=== PATIENT | male | born 1955 | race Caucasian/White ===

== ENCOUNTER 2024-06-03 11:39 | Emergency (ER) | payer OTHER, SELFPAY ==
[2024-06-03 11:53] VITALS: BP 134/85
--- NOTE | 2024-06-03 14:04 | ED.GENMED ---
History of Present Illness
General
Chief Complaint: Skin Problem
Time Seen by Provider: 06/03/24 13:09
History of Present Illness
History of Present Illness:
68-year-old male presents to the emergency department for evaluation of an abscess to the right scapula that has been ongoing for the past 2 to 3 days. Saw his primary care physician who started him on cephalexin but recommended ED evaluation. No
fevers or chills. No past history of similar. Denies any chest pain or difficulty breathing. No upper extremity paresthesias
Past History
Past History
ED Past Medical History: Other (Diverticulitis)
ED Past Surgical History: None
Social History
Tobacco: Non-smoker
Alcohol: None
Review of Systems
Review of Systems
Allergies reviewed?: Yes
All Other Systems: ROS reviewed and negative except as documented in HPI and ROS
Phy Exam
Physical Exam
Physical Exam:
GEN: Well appearing, NAD, WDWN
HEENT: Oral mucosa moist, no scleral icterus
Cardiac: Regular rate
Lung: No respiratory distress, no tachypnea
MSK: No gross deformity or injuries
Skin: Good color, no pallor or jaundice, no rashes. 2 cm x 3 cm fluctuant mass with active purulent discharge to the right scapula, mild surrounding erythema
Neuro: AO x3, moves all extremities freely
Psych: Calm, cooperative
Course
Vital Signs
Initial and Last Documented VS:
Initial Vital Signs
Temp Pulse Resp BP Pulse Ox
98.0 F 72 20 134/85 98
06/03/24 11:53 06/03/24 11:53 06/03/24 11:53 06/03/24 11:53 06/03/24 11:53
Last Documented Vital Signs
Temp Pulse Resp BP Pulse Ox
98.0 F 72 20 134/85 98
06/03/24 11:53 06/03/24 11:53 06/03/24 11:53 06/03/24 11:53 06/03/24 11:53
Procedures
Incision/Drainage/Joint Aspiration
Right Scapula:
Anethesia: 1% Lidocaine with Epi
Preparation: cleaned with alcohol wipe
Type of procedure: incise and drain
Nature of site: abscess
Description of abscess: greater than 3cm
Loculations broken up: Yes
How much fluid was obtained?: large amount
Fluid description: purulent
Treatment: left open for drainage
MDM/Problems Addressed
MDM/Problems Addressed:
Abscess drained at the bedside, patient was started on cephalexin per primary care physician orders. Wound care follow-up discussed
*Critical Care Note
Total Time (30-74mins, 75-104mins- exclusive of procedures): Not Applicable
ED Attending Note
-
Portions of this chart may have been created with voice recognition software.� Occasional wrong word or��sound alike� substitutions may have occurred due to the inherent limitations of voice recognition software.
Discharge Plan
Departure
Patient Disposition: Home (Routine Discharge)
Date of Disposition: 06/03/24
Time of Disposition: 14:06
Patient with high blood pressure during this ER visit?: No
Discharge Problem:
Abscess of back
Instructions: Skin Abscess
Prescriptions:
No Action
hydrocodone-acetaminophen 5-325 mg tablet
1 tab PO BID PRN (Reason: pain) Qty: 14 0RF
metronidazole 500 mg Tablet
500 mg PO TID Qty: 21 0RF
tamsulosin [Flomax] 0.4 mg Capsule
0.4 mg PO DAILY Qty: 14 0RF
diclofenac potassium 50 mg tablet
50 mg PO BID Qty: 20 0RF
ondansetron 4 mg Tablet,Disintegrating
4 mg PO BIDPRN PRN (Reason: nausea/vomiting) Qty: 10 0RF
levofloxacin 500 mg Tablet
500 mg PO DAILY Qty: 7 0RF
Referrals:
Ricky Torrez MD [Active] -
Salma Batista DO [Family Provider] -
Activity Restrictions/Additional Instructions:
You may shower and wash the area with soap and water
Please change the bandage at minimum once daily, it may be needed to change more than once per day if significant bleeding or discharge occurs.
Follow-up with the listed general surgeon
Complete the antibiotics as prescribed by your primary doctor and follow-up with your primary doctor in 3 to 5 days for wound recheck
Interventions
Interventions:
*Risk Screen - Suicide Last Done: 06/03/24 11:53
*General Assessment Last Done: 06/03/24 12:38
*Neglect/Abuse Screening Last Done: 06/03/24 12:38
*ED- Fall Risk Assessment Last Done: 06/03/24 12:38
*ED COVID-19 Vaccine History Last Done: 06/03/24 12:38
*Nursing Disposition Last Done: 06/03/24 14:22
ED-Skin Assessment Last Done: 06/03/24 12:37
Discharge Date and Time
Discharge Date/Time: 06/03/24 14:23
Print Language: [id number]
== END 2024-06-03 14:23 | disposition home or self-care (01) ==
LOC: EMR 11:39
PROVIDERS: EMERGENCY PHYSICIAN Emergency Medicine; FAMILY PHYSICIAN Family Medicine
DX: L02.212 Cutaneous abscess of back [any part, except buttock and flank] (principal)
CPT/HCPCS: 99282; 10060